=== PATIENT | female | born 1960 | race Caucasian/White ===

== ENCOUNTER 2019-01-03 12:35 | Emergency (ER) | payer BC | END 2019-01-03 15:08 | disposition home or self-care (01) | LOC: ERS 12:35 | DX: S51.802A Unspecified open wound of left forearm, initial encounter (principal); F90.9 Attention-deficit hyperactivity disorder, unspecified type; F17.210 Nicotine dependence, cigarettes, uncomplicated; Z79.891 Long term (current) use of opiate analgesic; Z79.899 Other long term (current) drug therapy; W39.XXXA Discharge of firework, initial encounter | CPT/HCPCS: 99282 ==

== ENCOUNTER 2019-07-29 12:38 | Outpatient (CLI) | payer BC ==
--- NOTE | 2019-07-30 08:52 | NM ---
EXAM: Nuclear medicine renal scan COMPARISON: None HISTORY: Urinary tract infection TECHNIQUE: A nuclear medicine renal exam was administered after administration of 8.2 mCi of techneti um 99m MAG3. FINDINGS: Time to peak is 11.4 minutes on the left and 3.4 minutes on the right. Time of one half max is 41 minutes on the left and a 0.0 minutes on the right. The left renal curve is abnormal with delayed washout consistent with obstruction and poor renal func tion. Split renal function is 23% on the left and 77% on the right. IMPRESSION: Poorly functioning left kidney with possible obstruction. Evaluation for complete obstru ction is limited as Lasix was not administered.
== END 2019-07-29 12:39 | disposition home or self-care (01) ==
LOC: NM 12:38
PROVIDERS: ATTEND Urology
DX: N39.0 Urinary tract infection, site not specified (principal); R94.4 Abnormal results of kidney function studies
CPT/HCPCS: 78707; A9562